=== PATIENT | male | born 1975 | race Caucasian/White ===

== ENCOUNTER 2021-06-21 23:35 | Emergency (ER) | payer OTHER ==
--- NOTE | 2021-06-22 01:00 | EDM.PDOC ---
ED HPI GENERAL MEDICAL PROBLEM - General Chief Complaint: Lower Extremity Injury/Pain Stated Complaint: HURT RT FOOT Time Seen by Provider: 06/22/21 00:04 Source of Information: Reports: Patient History Limitations: Reports: No Limitations - History of Present Illness INITIAL COMMENTS - FREE TEXT/NARRATIVE: Paul is a 45-year-old male presenting to the ED for evaluation of right foot pain and swelling. The patient was trying to make an upper bunk bed standing on the ladder to the bunk when the ladder suddenly slid out causing him to trap his foot under the ladder. This resulted in smashing of the dorsal foot and hyper flexing the foot and toes under his weight and the latter as a fulcrum. The patient took ibuprofen 800 mg at home without any relief. He denies any distal numbness or tingling but has very significant pain and swelling. He did sustain abrasions to the dorsal right foot, anterior right wells, left flank, and inner left upper arm. Right Foot Pain Score (Numeric/FACES): 8 - Related Data Allergies Allergy/AdvReac Type Severity Reaction Status Date / Time No Known Allergies Allergy Verified 06/21/21 23:49 Home Meds: Home Meds Sertraline [Zoloft] 100 mg PO DAILY 06/21/21 [History] atorvaSTATin [Lipitor] 20 mg PO BEDTIME 06/21/21 [History] Past Medical History Cardiovascular History: Reports: High Cholesterol Musculoskeletal History: Reports: Fracture Psychiatric History: Reports: Anxiety - Past Surgical History Musculoskeletal Surgical History: Reports: Arthroscopic Knee Social & Family History - Tobacco Use Tobacco Use Status *Q: Never Tobacco User Review of Systems - Review of Systems Review Of Systems: See Below Constitutional: Reports: No Symptoms Musculoskeletal: Reports: Foot Pain (Right foot pain and swelling), Joint Swelling (Swelling over the first and second right MTPs extending up the dorsal foot. Patient also experiencing pain in the right heel.) Skin: Reports: Wound (Abrasions to the left medial arm, left flank, right anterior wells, and dorsal right foot) Neurological: Reports: No Symptoms ED EXAM, GENERAL - Physical Exam Exam: See Below Exam Limited By: No Limitations General Appearance: Alert, Mild Distress Back Exam: Normal Inspection Extremities: Joint Swelling (Swelling over the dorsal medial right foot over the first and second metatarsals and toes. There is an abrasion over the first MTP.), Limited Range of Motion (Right foot pain limiting range of motion), Other (Abrasion to the medial side of the left arm, abrasion to the left flank and abrasion to the right wells.) Neurological: Alert, Oriented, Normal Cognition, No Motor/Sensory Deficits Skin Exam: Wound/Incision (Abrasion over the right first MTP dorsally. Abrasion over the medial left arm and left flank. Abrasion over the anterior right wells.) Course - Vital Signs Last Recorded V/S: Last Vital Signs Temp 36.1 C 06/21/21 23:53 Pulse 65 06/21/21 23:53 Resp 16 06/21/21 23:53 BP 141/89 H 06/21/21 23:53 Pulse Ox 98 06/21/21 23:53 - Orders/Labs/Meds Orders: Active Orders 24 hr Category Date Time Status Foot 2V Rt [CR] Stat Exams 06/22/21 00:14 Ordered - Re-Assessments/Exams Free Text/Narrative Re-Assessment/Exam: 06/22/21 01:00 I reviewed the patient's x-rays of the right foot which do not show any acute osseous abnormalities with the exception of a large bony spur at the distal aspect of the first metatarsal. There is no evidence for fracture or dislocation. Moreover, this appears to be more of a contusion and sprain of the foot. We will put the patient in a walking boot to help support the foot and ankle. I encouraged him to ice and elevate the foot to reduce pain and swelling. He has been taking ibuprofen 800 mg without much relief of the pain so we will give him a small amount of hydrocodone at this time. Indications to follow-up in the ER were discussed. If not improving the patient can follow-up with his primary care provider. Departure - Departure Time of Disposition: 00:51 Disposition: Home, Self-Care 01 Clinical Impression: Contusion of right foot, initial encounter Sprain of right foot Qualifiers: Encounter type: initial encounter Qualified Code(s): S93.601A - Unspecified sprain of right foot, initial encounter - Discharge Information Instructions: Foot Sprain, Foot Contusion Referrals: RACHELE NEGRON [Other] Care Plan Goals: X-rays of the foot failed to demonstrate any significant bony abnormalities. You do have some arthritic changes in your first metatarsal, at the base of the great toe showing some spurring along the anterior distal bone were tendon attaches to the bone. This may have been one of the focal points when your foot became trapped in the latter causing the soft tissue injury. You likely have 2 things occurring 1 being the contusion or bruising of the soft tissue of the foot and the second being a sprain due to the torque or hyperextension of the foot that occurred. Most important thing is to ice and elevate the foot to reduce swelling and pain. You may take Tylenol or ibuprofen for your pain. You may ambulate as tolerated. If you would like we can provide you with a walking boot which may offer some support to the foot and ankle. Sepsis Event Note (ED) - Evaluation Sepsis Screening Result: No Definite Risk - Focused Exam Vital Signs: Vital Signs Temp Pulse Resp BP Pulse Ox 06/21/21 23:53 36.1 C 65 16 141/89 H 98 06/21/21 23:48 36.1 C 65 16 141/89 H 98 - Problem List & Annotations (1) Contusion of right foot, initial encounter SNOMED Code(s): 05399258, 468111184 Code(s): S90.31XA - CONTUSION OF RIGHT FOOT, INITIAL ENCOUNTER Status: Acute Priority: Medium Current Visit: Yes (2) Sprain of right foot SNOMED Code(s): 32634285 Code(s): S93.601A - UNSPECIFIED SPRAIN OF RIGHT FOOT, INITIAL ENCOUNTER Status: Acute Priority: Medium Current Visit: Yes Qualifiers: Encounter type: initial encounter Qualified Code(s): S93.601A - Unspecified sprain of right foot, initial encounter - Problem List Review Problem List Initiated/Reviewed/Updated: Yes - My Orders Last 24 Hours: My Active Orders 06/22/21 00:14 Foot 2V Rt [CR] Stat - Assessment/Plan Last 24 Hours: My Active Orders 06/22/21 00:14 Foot 2V Rt [CR] Stat
--- NOTE | 2021-06-24 09:05 | CR ---
Foot 2V Rt CLINICAL HISTORY: Pain FINDINGS: There is no acute fracture or dislocation within the foot. No destructive changes are present. There is osteoarthritic change at the first MTP joint with periarticular spurring. There is soft tissue swelling of the forefoot IMPRESSION: No acute bony process. Osteoarthritis first MTP joint
== END 2021-06-22 01:52 | disposition home or self-care (01) ==
LOC: JP.ED 23:35
DX: S93.601A Unspecified sprain of right foot, initial encounter (principal); S30.811A Abrasion of abdominal wall, initial encounter; S40.812A Abrasion of left upper arm, initial encounter; E78.00 Pure hypercholesterolemia, unspecified; Z79.899 Other long term (current) drug therapy; W11.XXXA Fall on and from ladder, initial encounter
CPT/HCPCS: 73620-26-RT; 73620-RT; 99283-25